=== PATIENT | female | born 1935 | race Caucasian/White ===

== ENCOUNTER → 2018-07-11 | Day surgery (SDC) | payer MEDICARE ==
[2018-07-06 13:06] LABS: BASOPHILS % 0.3 % (0.0-1.0); EOSINOPHILS # (AUTO) 0.1 (0.0-0.4); EOSINOPHILS % 2.2 % (0.0-6.0); HEMATOCRIT 38.2 % (34.2-44.1); HEMOGLOBIN 12.9 g/dL (12.0-16.0); LYMPHOCYTES # (AUTO) 1.8 (1.0-3.2); LYMPHOCYTES % 29.1 % (18.0-39.1); MEAN CORPUSCULAR HEMOGLOBIN 30.2 pg (28-32); MEAN CORPUSCULAR HGB CONC 33.8 g/dL (31-35); MEAN CORPUSCULAR VOLUME 89.5 fL (81-99); MONOCYTES # (AUTO) 0.5 (0.2-0.8); MONOCYTES % 8.1 % (4.4-11.3); NEUTROPHILS # (AUTO) 3.8 (2.1-6.9); NEUTROPHILS % 59.8 % (38.7-80.0); PLATELET COUNT 201 x10e3/uL (140-360); RED BLOOD COUNT 4.27 x10e6/uL (3.6-5.1); RED CELL DISTRIBUTION WIDTH 13.3 % (11.7-14.4)
--- NOTE | 2018-07-06 13:16 | Diagnostic Imaging Report ---
ADDENDUM #1 EXAMINATION: CHEST 2 VIEWS INDICATION: Chest pain. Urinary tract infection. Preop COMPARISON: None FINDINGS: TUBES and LINES: None. LUNGS: Lungs are well inflated. Lungs are clear. There is no evidence of pneumonia or pulmonary edema. PLEURA: No pleural effusion or pneumothorax. HEART AND MEDIASTINUM: The cardiomediastinal silhouette is unremarkable. BONES AND SOFT TISSUES: No acute osseous lesion. Surgical clips in the left axillary region. UPPER ABDOMEN: No free air under the diaphragm. IMPRESSION: No acute thoracic abnormality. Signed by: Dr. Harshil Guzmán M.D. on 07/17/2018 1:37 PM ORIGINAL REPORT EXAMINATION: CHEST 2 VIEWS INDICATION: Preop COMPARISON: None FINDINGS: TUBES and LINES: None. LUNGS: Lungs are well inflated. Lungs are clear. There is no evidence of pneumonia or pulmonary edema. PLEURA: No pleural effusion or pneumothorax. HEART AND MEDIASTINUM: The cardiomediastinal silhouette is unremarkable. BONES AND SOFT TISSUES: No acute osseous lesion. Surgical clips in the left axillary region. UPPER ABDOMEN: No free air under the diaphragm. IMPRESSION: No acute thoracic abnormality. Signed by: Dr. Harshil Guzmán M.D. on 07/06/2018 1:12 PM
[2018-07-06 13:20] LABS: CREATININE, SERUM 1.1 mg/dL (0.57-1.11)
[~2018-07-11] MED LIST: BIOTIN1 MG; CEFTRIAXONE SOD 1 GM VIAL ONE; DESFLURANE 240 ML BTL INH ONE; GLIPIZIDE5 MG PO; LIDOCAINE HCL 2% LOCAL INJ 5 ML SDV VIAL INJ ONE; LOSARTAN POTASS25 MG; LUTEIN20 MG; METFORMIN HCL500 MG PO; MIDAZOLAM HCL 2 MG/2 ML VIAL ONE; ONDANSETRON HCL INJ 2 MG/ML VIAL ONE; OXYBUTYNIN CHLOR5 MG PO; PROPOFOL IV EMULSION 10 MG/ML 20 ML VIAL ONE; SCOPOLAMINE 1.5 MG PATCH ONE
[2018-07-11 16:30] VITALS: BP 161/91
--- NOTE | 2018-07-11 17:32 | Operative Report ---
DATE OF PROCEDURE: July 11, 2018 PREOPERATIVE DIAGNOSES 1. Multiple chronic urinary tract infections. 2. Clinical signs and symptoms of interstitial cystitis. POSTOPERATIVE DIAGNOSES 1. Multiple chronic urinary tract infections. 2. Clinical signs and symptoms of interstitial cystitis. 3. Grade 3 cystocele. 4. Grade 3 rectocele. 5. Grade 2 vaginal vault prolapse. 6. Vaginal atrophy. PROCEDURES PERFORMED 1. Cystourethroscopy with hydrodistention (entirely separate procedure for clinical signs and symptoms of interstitial cystitis). 2. Cystourethroscopy with left ureteral catheterization and left retrograde pyelogram (entirely separate procedure performed for multiple chronic urinary tract infections). 3. Cystourethroscopy with right ureteral catheterization, and right retrograde pyelogram (separate procedure for multiple chronic urinary tract infections). 4. Supervision of fluoroscopy. 5. Interpretation of retrograde ureteropyelography. ANESTHESIA: General. ESTIMATED BLOOD LOSS: Minimal. COMPLICATIONS: None. INDICATIONS: Ms. Ingram is an 82-year-old female with a history of multiple chronic urinary tract infections. She and I had a long discussion about alternatives, risks, and benefits including doing nothing, cystoscopy, IVP, retrograde pyelogram, renal ultrasound, hydrodistention. She voiced understanding of the options, alternatives, risks, and benefits and elected to proceed. PROCEDURE IN DETAIL: After informed consent was obtained, the patient was taken to the operative suite, placed supine on the table, and underwent general anesthesia by the anesthesia service. She was placed in the dorsal lithotomy position and sterilely prepped and draped in the standard fashion for cystoscopy. With severe vaginal atrophy noted, there was grade 3 cystocele, grade 3 rectocele, and grade 2 vaginal vault prolapse. Normal bilateral ureteral orifices. Urethra was catheterized with 22.5-Armenian cystoscope. 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 Both ureteral orifices were displaced by the cystocele. Hydrodistention was performed revealing 800 mL capacity. There were no polyps. There were glomerulations, but there were no Hunner's ulcers. Bilateral retrograde pyelograms were performed, which were normal. The bladder was drained. The patient was awakened from anesthesia and transported to the recovery room in excellent condition. SUPERVISION OF FLUOROSCOPY AND INTERPRETATION OF RETROGRADE URETEROPYELOGRAPHY: I was present throughout the entire procedure and supervised fluoroscopy as no radiologist was present at any time during this procedure. Attention was turned towards the left and right ureteral orifices, which were catheterized with an olive-tipped catheter. Bilateral retrograde pyelograms were performed revealing delicate ureters, delicate pelvicaliceal systems, no evidence of filling defects, no evidence of hydronephrosis. IMPRESSION: Normal retrograde pyelograms. Job#: [id number] LPA
== END | disposition home or self-care (01) ==
LOC: OR 12:47
PROVIDERS: ATTEND Urology
DX: N30.10 Interstitial cystitis (chronic) without hematuria (principal); R31.29 Other microscopic hematuria; N39.46 Mixed incontinence; I10 Essential (primary) hypertension; E11.9 Type 2 diabetes mellitus without complications; E78.00 Pure hypercholesterolemia, unspecified; N81.10 Cystocele, unspecified; N81.6 Rectocele; N95.2 Postmenopausal atrophic vaginitis; Z01.810 Encounter for preprocedural cardiovascular examination; Z01.812 Encounter for preprocedural laboratory examination; Z01.811 Encounter for preprocedural respiratory examination
CPT/HCPCS: 36415 ×2; 52005; 52260; 71046; 74420; 80048; 82948; 85025; 93005; J0696; J2001; J2250; J2405

== ENCOUNTER → 2022-03-09 | Outpatient (CLI) | payer MEDICARE ==
[~2022-03-09] MED LIST changes: -CEFTRIAXONE SOD 1 GM VIAL ONE; -DESFLURANE 240 ML BTL INH ONE; -LIDOCAINE HCL 2% LOCAL INJ 5 ML SDV VIAL INJ ONE; -MIDAZOLAM HCL 2 MG/2 ML VIAL ONE; -ONDANSETRON HCL INJ 2 MG/ML VIAL ONE; -PROPOFOL IV EMULSION 10 MG/ML 20 ML VIAL ONE; -SCOPOLAMINE 1.5 MG PATCH ONE
== END ==
LOC: MRI 11:41
PROVIDERS: ATTEND Family Medicine
DX: R42 Dizziness and giddiness (principal); Z91.81 History of falling
CPT/HCPCS: 70551